=== PATIENT | male | born 1970 ===

== ENCOUNTER 2020-12-31 17:49 | Emergency (ER) | payer OTHER ==
[~2020-12-31] VITALS: Ht 188 cm; Wt 133.8 kg
[~2020-12-31 17:49] MED LIST: CARDIZEM30 MG; LISINOPRIL2.5 MG
[2020-12-31] MEDS ORDERED: METFORMIN HCL500 M3 PO (18:15)
[2020-12-31] MEDS ORDERED: CARDURA XL4 MG PO (18:15)
[2020-12-31] MEDS ORDERED: CRESTOR10 MG PO (18:16)
[2020-12-31] MEDS ORDERED: XARELTO10 MG PO (21:44)
== END 2020-12-31 22:24 | disposition home or self-care (01) ==
LOC: ER 17:49
DX: I82.812 Embolism and thrombosis of superficial veins of left lower extremity (principal); M79.605 Pain in left leg; R60.0 Localized edema